=== PATIENT | male | born 1965 | race Caucasian/White ===

== ENCOUNTER → 2017-02-01 09:36 | Outpatient (CLI) | payer MEDICAID | END | disposition home or self-care (01) | LOC: D.CT 09:36 | DX: R59.1 Generalized enlarged lymph nodes (principal) ==

== ENCOUNTER → 2017-03-14 09:33 | Outpatient (CLI) | payer OTHER | END | disposition home or self-care (01) | LOC: D.RAD 09:33 | DX: Z02.71 Encounter for disability determination (principal) ==

== ENCOUNTER 2017-11-09 10:29 | Outpatient (CLI) | payer OTHER ==
[~2017-11-09] VITALS: Ht 180.3 cm; Wt 88.2 kg
--- NOTE | ~2017-11-09 | OP ---
PATIENT NAME: MAURA DYER MEDICAL RECORD: [id number] :67 LOCATION:D.CAT ADMISSION DATE: SURGEON: MALINI ARIAS MD DATE OF OPERATION: 11/09/2017 DATE OF SERVICE: 11/09/2017 PROCEDURES: 1. Left heart catheterization. 2. Selective coronary angiography. 3. Left ventriculogram. INDICATION: Chest pain compatible with angina. PROCEDURE IN DETAIL: After informed consent was obtained and after a detailed explanation of the risks, benefits as well as alternative therapies, the patient elected to proceed with angiogram and heart catheterization. The right radial area was prepped and draped in normal sterile fashion. The right radial artery was cannulated via modified Seldinger technique with placement of 6-Uzbek sheath. All catheters exchanged through this sheath. FINDINGS: Left ventriculogram was performed in standard 30-degree SARMIENTO view, reveals good cardiac wall motion throughout all segments. Overall ejection fraction estimated at 55%. SELECTIVE CORONARY ANGIOGRAPHY: Left main, left anterior descending, left circumflex, right coronary artery are all smooth-walled vessels with no angiographic evidence of coronary artery disease. OVERALL IMPRESSION: 1. No angiographic evidence of coronary artery disease. 2. Normal left heart pressures. 3. Normal left ventricular systolic function. Chest pain is noncardiac in etiology. No further cardiac workup needs to be ascertained. TRANSINT:[id number] Voice Confirmation ID: [id number] DOCUMENT ID: [id number] MALINI ARIAS MD at 1324 CC: [id number] DICTATION DATE: 11/09/17 1518 [facility]NAGER [facility]: 11/09/17 1542 [facility] CLI 11/09/17 [place] [id number]
--- NOTE | ~2017-11-09 | HEMODYNAMI ---
PATIENT:MAURA DYER MEDICAL RECORD: [id number] : 67 LOCATION:[facility] ADMISSION DATE: 11/09/17 Generatedon:11/09/201715:17 Patient name: MAURA DYER Patient #: [id number] SSN: : 1965 Date of study: 11/09/2017 Page: Of Hemodynamic Procedure Report Patient Data Patient Demographics Procedure consent was obtained First Name: MAURA Gender: Male Last Name: GOMEZ : 1965 [facility] Initial: C Age: 52 year(s) Patient #: [id number] Race: Additional ID: [id number] Contact details [address]: [address] [place] [address] [address] State: [place] City: [place] Zip code: [address] Past Medical History Allergies: No known allergies Admission Admission Data Admission Date: 11/09/2017 Admission Time: 10:29 Admit Source: Other Lab Results Lab Result Date: 11/09/2017 Lab Result Time: 11:15 Biochemistry Name Units Result Min Max BUN mg/dl 24 --(----)-* 7 18 Creatinine mg/dl 0.9 --(-*--)-- 0.6 1.3 CBC Name Units Result Min Max Hematocrit % 41.3 -*(----)-- 42 54 Hemoglobin g/dl 13.3 -*(----)-- 13.5 17.5 Procedure Procedure Types Cath Procedure Diagnostic Procedure LHC LHC w/Coronaries Miscellaneous Procedures Moderate Sedation up to 15 minutes Procedure Description Procedure Date Procedure Date: 11/09/2017 Procedure Start Time: 15:05 Procedure End Time: 15:13 Procedure Staff Name Function Domenic Agudelo MD Performing Physician Gerald Castañeda RT Monitor Vy Manzo RT Scrub Gary Boo RN Nurse Procedure Data Cath Procedure Fluoroscopy Diagnostic fluoroscopy Total fluoroscopy Time: 3.1 time: 3.1 min min Diagnostic fluoroscopy Total fluoroscopy dose: 443 dose: 443 mGy mGy Contrast Material Contrast Material Type Amount (ml) Isovue 300 49 Entry Location Entry Primary Successful Side Size Upsize Upsize Entry Closure Rizo ccessful Closure Location (Fr) 1 (Fr) 2 (Fr) Remarks Device Remarks Radial Right 5 Fr Mechanical artery Compression Estimated blood loss: 5 ml Diagnostic catheters Device Type Used For End Catheter Placement DIAGNOSTIC [place] 110cm 5 Procedure Fr catheter ([id number]) Procedure Complications No complications Procedure Medications Medication Administration Route Dosage Oxygen NC 2 l/min 0.9% NaCl I.V. 100 ml/hr Heparin Flush Bag added to field 2 bags (1000units/500ml NS) Fentanyl I.V. 100 mcg Versed I.V. 2 mg Fentanyl I.V. 100 mcg Radial Cocktail added to field 1 syringe (Verapomil 2mg/Nitro 400mcg/Heparin 1500units) Radial Cocktail I.A. 1 syringe (Verapomil 2mg/Nitro 400mcg/Heparin 1500units) Fentanyl I.V. 100 mcg Versed I.V. 1 mg Hemodynamics Rest HGB: 13.3 (g/dl) Heart Rate: 78 (bpm) Snapshots Pre Cath Intra NCS Post Cath Vital Signs Time Heart Resp SPO2 etCO2 NIBP (mmHg) Rhythm Pain Sedation Rate (ipm) (%) (mmHg) Status Level (bpm) 14:51:15 75 18 97 0 129/83(103) NSR 0 (11) 10(A) , No pain 14:55:56 77 16 97 0 124/79(103) NSR 0 (11) 10(A) , No pain 15:00:34 78 17 97 30.1 122/83(104) NSR 0 (11) 10(A) , No pain 15:05:10 81 18 94 0 123/84(107) NSR 0 (11) 10(A) , No pain 15:09:47 80 17 96 15.8 123/65(86) NSR 0 (11) 9(A) , No pain 15:14:40 71 17 96 12.8 107/66(79) NSR 0 (11) 9(A) , No pain 15:17:03 77 17 97 11.3 123/68(88) NSR 0 (11) 10(A) , No pain Medications Time Medication Route Dose Verified Delivered Reason Notes Effectiveness by by 15:01:26 Oxygen NC 2 l/min Domenic Harmon Per Magnus Madison RN physician 15:01:38 0.9% NaCl I.V. 100 Domenic Mcallisterfany Per ml/hr Magnus Madison RN physician 15:01:48 Heparin Flush added 2 bags Domenic Eden used for Bag to Magnus Madison RN procedure (1000units/500ml field NS) 15:04:34 Fentanyl I.V. 100 mcg Domenic Mcallisterfany for sedation Magnus Madison RN 15:04:40 Versed I.V. 2 mg Domenic Eden for sedation Magnus Madison RN 15:06:15 Fentanyl I.V. 100 mcg Domenic Mcallisterfany for sedation Magnus Madison RN 15:06:33 Radial Cocktail added 1 Domenic Eden used for (Verapomil to syringe Magnus Madison RN procedure 2mg/Nitro field 400mcg/Heparin 1500units) 15:06:39 Radial Cocktail I.A. 1 Domenic Domenic for (Verapomil syringe Magnus Agudelo MD vasodilation 2mg/Nitro 400mcg/Heparin 1500units) 15:07:06 Fentanyl I.V. 100 mcg Domenic Mcallisterfany for sedation Magnus Madison RN 15:07:16 Versed I.V. 1 mg Domenic Mcallisterfany for sedation Magnus Madison RN Procedure Log Time Note 14:22:31 Admit Source: Other 14:22:35 Diagnostic Cath status Elective 14:22:59 Gerald Castañeda RT(R) sent for patient. Start room use. 14:23:01 Time tracking: Regular hours 14:23:05 Plan of Care:Hemodynamics will remain stable., Cardiac rhythm will remain stable., Comfort level will be maintained., Respiratory function will remain adequate., Patient/ family verbilizes understanding of procedure., Procedure tolerated without complication., Recovers from procedure without complications.. 14:23:17 H&P Date Dictated: 11/08/2017 Within 30 days and on chart., H&P Addendum completed by physician on day of procedure. (MUST COMPLETE FOR ALL OUTPATIENTS). 14:23:41 Family in waiting room. 14:23:43 Patient NPO since Midnight. 14:25:30 Lab Result : Hemoglobin 13.3 g/dl 14:25:30 Lab Result : Hematocrit 41.3 % 14:25:30 Lab Result : BUN 24 mg/dl 14:25:30 Lab Result : Creatinine 0.9 mg/dl 14:41:54 Patient received from Pre/Post Procedure Room to CCL 1 Alert and oriented. Tansferred to table in Supine position. 14:41:55 Warm blankets applied, and jose hugger turned on for patient comfort. 14:41:56 Correct patient and procedure confirmed by team. 14:41:57 Signed procedure consent form obtained from patient. 14:41:59 ECG and BP/O2 sat monitors applied to patient. 14:42:01 Full Disclosure recording started 14:50:19 Vital chart was started 14:55:45 Baseline sample Acquired. 14:55:50 Rhythm: sinus rhythm 14:55:56 Pre-procedure instructions explained to patient. 14:55:56 Pre-op teaching completed and patient verbalized understanding. 14:56:01 Patient allergic to No known allergies 14:56:04 Is the patient allergic to Iodine/contrast media? No. 14:56:05 Is patient on blood thinner?No 14:56:06 Patient diabetic? No. 14:56:08 Previous problem with sedation/anesthesia? No ? 14:56:10 Snore? Yes 14:56:11 Sleep apnea? Possible sleep apnea. 14:56:13 Deviated septum? No 14:56:13 Opens mouth fully? Yes 14:56:14 Sticks out tongue? Yes 14:56:16 Airway obstruction? Yes ? 14:56:17 Airway obstruction? No ? 14:56:18 Dentures? No ? 14:57:00 Modified Iván's test Ulnar > 7 seconds. 14:57:04 Patient pain scale 6/10 ?. 14:57:17 IV patent on arrival in left forearm with 0.9% NaCl at [facility]. 14:57:25 Lab results completed and on chart. 14:57:27 Right Radial & Right Groin area was prepped with chlora-prep and draped in sterile fashion 14:57:29 Alarms reviewed by R. N. 14:57:29 Sharps counted by scrub and verified by R.N. 14:57:32 Use device set Radial Dx or PCI 14:57:34 MBrace Wrist Support ([id number]) opened to sterile field. 14:57:35 ACIST Manifold (80271) opened to sterile field. 14:57:36 ACIST Hand Control (25090) opened to sterile field. 14:57:45 ACIST Syringe (07428) opened to sterile field. 14:57:46 Medline Cath Pack ([id number]) opened to sterile field. 14:57:47 Bag Decanter (2002) opened to sterile field. 14:57:49 Tegaderm 4 x 4 (1626W) opened to sterile field. 14:57:54 NEEDLE Cook 21G 4cm Radial (V57892) opened to sterile field. 14:57:55 DIAGNOSTIC WIRE .035 260cm J wire (936402) opened to sterile field. 14:57:56 SHEATH 6FR Slender ([id number]) opened to sterile field. 15:01:26 Oxygen 2 l/min NC was administered by Eden Madison RN; Per physician; 15:01:38 0.9% NaCl 100 ml/hr I.V. was administered by Eden Madison RN; Per physician; 15:01:48 Heparin Flush Bag (1000units/500ml NS) 2 bags added to field was administered by Eden Madison RN; used for procedure; 15:04:14 Physician arrived 15:04:14 --------ALL STOP TIME OUT------ 15:04:15 Final Timeout: patient, procedure, and site verified with staff and physician. All members of the team are in agreement. 15:04:16 Right Radial & Right Groin site verified by team. 15:04:19 Physical assessment completed. ASA score P 2 - A patient with mild systemic disease as per Domenic Agudelo MD. 15:04:21 Sedation plan: IV Moderate Sedation Medication:Versed, Fentanyl 15:04:25 Zero performed for pressure channel P1 15:04:29 Zero performed for pressure channel P1 15:04:32 Zero performed for pressure channel P1 15:04:34 Fentanyl 100 mcg I.V. was administered by Eden Madison RN; for sedation; 15:04:37 Zero performed for pressure channel P1 15:04:40 Versed 2 mg I.V. was administered by Eden Madison RN; for sedation; 15:05:30 Procedure started. 15:05:36 Local anesthetic to right radial artery with Lidocaine 2% by Domenic Agudelo MD.INITIAL ACCESS ONLY 15:05:45 A 5 Fr sheath was inserted into the Right Radial artery 15:06:01 A DIAGNOSTIC [place] 110cm 5 Fr catheter (241996) was advanced over the wire and used for Procedure. 15:06:15 Fentanyl 100 mcg I.V. was administered by Eden Madison RN; for sedation; 15:06:19 LV gram done using SARMIENTO 15:06:22 Injector settings: Ml/sec: 7, Volume: 15, 15:06:33 Radial Cocktail (Verapomil 2mg/Nitro 400mcg/Heparin 1500units) 1 syringe added to field was administered by Eden Madison RN; used for procedure; 15:06:39 Radial Cocktail (Verapomil 2mg/Nitro 400mcg/Heparin 1500units) 1 syringe I.A. was administered by Domenic Agudelo MD; for vasodilation; 15:06:42 EF : 60 % 15:06:45 LCA angiography performed. 15:07:06 Fentanyl 100 mcg I.V. was administered by Eden Madison RN; for sedation; 15:07:13 RCA angiography performed. 15:07:16 Versed 1 mg I.V. was administered by Eden Madison RN; for sedation; 15:08:01 Catheter removed. unable to cannulate vessel. 15:08:08 GUIDE 6FR XBLAD 3.5 catheter ([id number]) opened to sterile field. 15:08:48 6 Fr xblad 3.5 guide catheter was inserted over the wire 15:09:41 LCA angiography performed. 15:10:13 Catheter removed. 15:10:19 TR BAND Standard ([id number]) opened to sterile field. 15:11:14 Sheath removed intact; hemostasis achieved with Mechanical Compression to the Right Radial artery. 15:11:16 Procedure ended.(Physican Out) 15:11:25 Fluoroscopy time 03.10 minutes. 15:11:58 Fluoroscopy dose: 443 mGy 15:11:58 Flurop Dose total: 443 15:12:09 Contrast amount:Isovue 300 49ml. 15:12:13 Sharps counted by scrub and verified by R.N. 15:12:17 TR band inflated with 12cc of air. 15:12:18 Insertion/operative site no bleeding no hematoma. 15:12:24 Post right radial artery:stable, soft, clean and dry 15:12:26 Post Procedure Pulses reassessed and unchanged 15:12:28 Post-procedure physical assessment completed. ASA score P 2 - A patient with mild systemic disease as per Domenic Agudelo MD. 15:12:30 Post procedure rhythm: unchanged. 15:12:32 Estimated blood loss: 5 ml 15:12:35 Post procedure instruction explained to patient.Patient verbalizes understanding. 15:12:35 Patient needs reinforcement of post procedure teaching. 15:12:41 Procedure type changed to Cath procedure, Diagnostic procedure, LHC, LHC w/Coronaries, Miscellaneous Procedures, Moderate Sedation up to 15 minutes 15:13:10 Procedure and supply charges have been captured, reviewed, submitted and are correct. 15:13:12 Procedure Complication : No complications 15:13:14 Vital chart was stopped 15:13:15 See physician's report for complete and final results. 15:13:16 Report given to Pre/Post Procedure Room. 15:13:18 Patient transfered to Pre/Post Procedure Room with Stretcher. 15:13:20 Procedure ended. 15:13:20 Full Disclosure recording stopped 15:13:23 End room use (Document Last) Device Usage Item Name Manufacture Quantity Catalog Hospital Part Current Minima l Lot# / Number Charge Number Stock Stock Serial# Code MBrace Wrist Advanced 1 140-0250-00 281518 76967 396025 5 Support Vascular ([id number]) Dynamics ACIST Acist 1 75975 249064 356753 121838 5 Manifold Medical (68643) Systems Inc ACIST Hand Acist 1 17316 923565 437854 397236 5 Control Medical (68255) Systems Inc ACIST Acist 1 66489 304811 671534 633591 20 Syringe Medical (96978) Systems Inc Medline Cath Cardinal 1 [id number] 303801 24517 378037 5 Pack Health ([id number]) Bag Decanter Microtek 1 2001S 445998 82032 907466 5 (2001S) Medical Inc. Tegaderm 4 x 3M 1 1626W 905889 332208 448373 5 4 (1626W) NEEDLE ComQi Medical 1 E03628 414835 909351 206609 5 21G 4cm Radial (J05795) DIAGNOSTIC St [place] 1 371860 225907 466632 455909 30 WIRE .035 260cm J wire (362389) SHEATH 6FR Terumo 1 [id number] 773253 819764 883128 40 Slender ([id number]) DIAGNOSTIC Terumo 1 40-8009 554120 873398 585795 5 [place] 110cm 5 Fr catheter (068718) GUIDE 6FR Cardinal 1 [id number] 287492 642795 795493 10 XBLAD 3.5 Health catheter (58498810) TR BAND Terumo 1 [id number] 952847 317653 366582 40 Standard ([id number]) Signature Audit [place] Stage Time Signature Unsigned Intra-Procedure 11/09/2017 Gerald Castañeda 3:17:49 PM RT(R) Signatures Monitor : Gerald Castañeda RT Signature : Date : Time : [place] [id number] [place] [address]
[2017-11-09] MEDS ORDERED: CLARITIN 10 MG10 MG PO (10:55)
[2017-11-09] MEDS ORDERED: PROTONIX40 MG PO (10:56)
[2017-11-09] MEDS ORDERED: HYDROCODONE-APA1 TAB (10:58)
[2017-11-09] MEDS ORDERED: ROBAXIN500 MG PO (10:59)
[2017-11-09] MEDS ORDERED: BAYER CHEWABLE81 MG PO (10:59)
[2017-11-09] MEDS ORDERED: ST. JOHN'S WOR300 MG PO (10:59)
[2017-11-09] MEDS ORDERED: NIASPAN500 MG PO (11:00)
[2017-11-09 11:06] VITALS: BP 146/100; Ht 180.3 cm; Wt 88.2 kg
[2017-11-09 11:29] LABS: BASOPHILS 0.3 % (0-2); EOSINOPHILS 2.7 % (0-7); HEMATOCRIT 41.3 % (42.0-54.0); HEMOGLOBIN 13.3 g/dL (13.5-17.5); IMMATURE GRANULOCYTES 0.3 % (0-5); LYMPHOCYTES 22.1 % (15-50); MCH 27.8 pg (26.0-34.0); MCHC 32.2 g/dL (31.0-37.0); MCV 86.2 fL (80.0-100.0); MEAN PLATELET VOLUME 10.4 fL (7.4-10.4); MONOCYTES 9.5 % (2-11); NEUTROPHILS 65.1 % (40-80); PLATELET COUNT 311 10x3/uL (130-400); RBC 4.79 10x6/uL (4.20-6.10); RDW 13.2 % (11.5-14.5); WBC 7.5 10x3/uL (4.8-10.8)
[2017-11-09 11:44] LABS: CALC OSMOLALITY 281 mosm/kg (275-300); CALCIUM 9.4 mg/dL (8.5-10.1); CARBON DIOXIDE 23.3 mmol/L (21.0-32.0); CHLORIDE - SERUM 103 mmol/L (98-107); CREATININE - SERUM 0.9 mg/dL (0.6-1.3); GLUCOSE 95 mg/dL (74-106); SODIUM 139 mmol/L (136-145); UREA NITROGEN 24 mg/dL (7-18); eGFR NON AFRICAN AMERICAN > 90 mL/min (90-120)
== END 2017-11-09 17:15 | disposition home or self-care (01) ==
LOC: D.CATH 10:29
PROVIDERS: Internal Medicine Interventional Cardiology
DX: R07.89 Other chest pain (principal); Z01.812 Encounter for preprocedural laboratory examination